=== PATIENT | male | born 1950 | race Caucasian/White ===

== ENCOUNTER 2019-04-15 23:23 | Inpatient (IN) | payer MEDICARE, MEDICAID ==
[~2019-04-15] VITALS: Ht 182.9 cm; Wt 71.0 kg
[2019-04-15] MEDS ORDERED: normal saline 1000ML IV soln IVB ONE (23:45)
[2019-04-15] MEDS ORDERED: ipratropium/albuterol 3ml nebule NEB ONE (23:45)
[2019-04-16] MEDS ORDERED: azithromycin/NS 500mg/250ml 250 ML IV ONE
[2019-04-16] MEDS ORDERED: CefTRIAXone 2gm/D5W 50ml 50 ML IV ONE
[2019-04-16] MEDS ORDERED: magnesium 2GM in 50ml NS 50 ML IV PRN (01:10)
[2019-04-16] MEDS ORDERED: potassium Cl 20 mEq SR tablet PO PRN (01:10)
[2019-04-16] MEDS ORDERED: magnesium 4gm in 100ml NS 100 ML IV PRN (01:10)
[2019-04-16] MEDS ORDERED: potassium CL 10mEq/100ml bag 100 ML IV PRN ×2 (01:10)
[2019-04-16] MEDS ORDERED: ondansetron/PF 4mg/2ml inj IV PRN (01:10)
[2019-04-16] MEDS ORDERED: magnesium Cl slow-release 64mg tablet PO PRN (01:10)
[2019-04-16] MEDS ORDERED: TRAZ-251 PO (01:15)
[2019-04-16] MEDS ORDERED: ESCI10TA54 PO (01:15)
[2019-04-16] MEDS ORDERED: ALBU8HFA PO (01:15)
[2019-04-16] MEDS ORDERED: DICL50TA14 PO (01:15)
[2019-04-16] MEDS: normal saline 1000ml 1,000 ML IV SCH (01:17)
--- NOTE | 2019-04-16 01:37 | NUR ---
Patient resting on gurney, pending admit. He is mildly confused, but follows commands.
--- NOTE | 2019-04-16 02:16 | NUR ---
pt belongings: boots, shorts, undies, wallet. No cell phone. medeiros: T=$300 (4x$50; 5x$20) & check for $100 verified and locked by Registration.
--- NOTE | 2019-04-16 03:36 | NUR ---
Patient in room ORTHO 4015. I have received report from Saloni SANFORD in the ER and had the opportunity to ask questions and assume patient care. Pt arrived on the unit at approx. 0316 on a gurney. He was able to slide himself from the gurney to his bad. Tele was placed, VS were taken, IV was connected and running at 20mls/hr, 2 RN skin check was performed and O@ was connected at 2L via NC. Pt is aware that he is in [place], [place]. Pt shows no signs of distress, will continue to monitor.
[2019-04-16 03:41] VITALS: BP 108/64
[2019-04-16 06:00] VITALS: BP 111/71
--- NOTE | 2019-04-16 06:20 | NUR ---
Problems reprioritized. Patient report given, questions answered & plan of care reviewed with Rea SANFORD.
[2019-04-16] MEDS: K and/or MAG REPLACEMENT MC SCH (08:00)
[2019-04-16] MEDS: levoFLOXACIN-Levaquin 500mg/D5 100 ML IV SCH (08:13)
[2019-04-16] MEDS: heparin, porcine 5000 units/ml vial SQ SCH ×2 (08:14→20:00)
--- NOTE | 2019-04-16 08:14 | NUR ---
Labs from [facility] platelet: [phone]; heparin administered
[2019-04-16 10:03] LABS: BASOPHILS % (AUTO) 0.1 % (0-1); EOSINOPHILS % (AUTO) 0 % (0-6); HEMATOCRIT 29.1 % (42.0-52.0); HEMOGLOBIN 9.4 g/dl (14.0-17.9); LYMPHOCYTES # (AUTO) 0.4 X10'3 (1.1-4.8); LYMPHOCYTES % (AUTO) 3.8 % (21-51); MEAN CORPUSCULAR HEMOGLOBIN 28.4 PG (27.0-31.0); MEAN CORPUSCULAR HGB CONC 32.2 g/dL (33.0-36.5); MEAN CORPUSCULAR VOLUME 88.2 FL (78-98); MEAN PLATELET VOLUME 6.8 FL (7.4-10.4); MONOCYTES # (AUTO) 0.3 X10'3 (0-0.9); MONOCYTES % (AUTO) 2.7 % (2-12); NEUTROPHILS # (AUTO) 10.9 X10'3 (1.8-7.7); NEUTROPHILS % (AUTO) 93.4 % (42-75); PLATELET COUNT 586 X10'3 (140-440); WHITE BLOOD COUNT 11.6 X10'3 (4.5-11.0)
[2019-04-16 10:13] LABS: ALANINE AMINOTRANSFERASE 52 U/L (12-78); ALBUMIN 1.8 G/DL (3.4-5.0); ALBUMIN/GLOBULIN RATIO 0.3 (1.1-1.5); ALKALINE PHOSPHATASE 162 IU/L (46-116); ANION GAP 9 (8-16); ASPARTATE AMINO TRANSFERASE 36 U/L (10-37); BILIRUBIN,TOTAL 0.2 MG/DL (0.1-1.0); BLOOD UREA NITROGEN 21 MG/DL (7-18); BUN/CREATININE RATIO 16.9 (5.4-32.0); CHLORIDE 101 MMOL/L (99-107); CREATININE 1.24 MG/DL (0.60-1.10); GLUCOSE 192 MG/DL (70-104); POTASSIUM 3.6 MMOL/L (3.5-5.1); SODIUM 138 MMOL/L (135-145); TOTAL CARBON DIOXIDE 28.2 MMOL/L (24-32); TOTAL PROTEIN 7.5 G/DL (6.4-8.2); eGFR 58 ML/MIN
[2019-04-16 10:19] LABS: CALCIUM 13.5 MG/DL (8.5-10.1)
[2019-04-16 10:28] LABS: TOTAL CELLS COUNTED 100
[2019-04-16 10:29] LABS: PLATELET ESTIMATE INCREASED; TOXIC GRANULATION 1+
[2019-04-16] MEDS ORDERED: HYDROcodone/acetaminophen 5mg/325mg tablet PO PRN (13:20)
[2019-04-16 14:00] VITALS: BP 109/58
[2019-04-16] MEDS: HYDROcodone/acetaminophen 10/325mg tab PO PRN ×2 (14:12→19:15)
--- NOTE | 2019-04-16 14:32 | NUR ---
Dr Krueger left VM for Dr Gutierres r/t confirmation pt has Bronchoscopy scheduled for Sunday04/18/2019 as per pt. Per [facility]/ [facility]ron/Angio/IR, pt will tentatively be scheduled for biopsy In-house 04/17/19 (if no call back/confirmation from Dr Gutierres) Hold all blood thinners heparin etc. No set time yet. Sputum sample ordered. Critical Calcium 13.5/Dr Krueger made aware of critical lab. Information has been given to family.
[2019-04-16] MEDS ORDERED: pamidronate disodium inj 60 MG in normal saline 500ml IV soln 500 ML IV ONE (16:15)
[2019-04-16 18:00] VITALS: BP 129/78
--- NOTE | 2019-04-16 18:00 | NUR ---
Received report from Rea SANFORD, assumed care of patient with Saloni SANFORD
[2019-04-16] MEDS: traZODone 50mg tablet PO SCH (20:48)
[2019-04-16] MEDS: lactobacillus rhamnosus 10,000 MMU CELLS/CAPSULE PO SCH (20:48)
[2019-04-16 22:00] VITALS: BP 101/61
[2019-04-17] MEDS: HYDROcodone/acetaminophen 10/325mg tab PO PRN ×2 (04:01→15:08)
--- NOTE | 2019-04-17 05:40 | NUR ---
In agreement with all charting and medication administration reviewed for this shift completed by Kristy SANFORD.
[2019-04-17 06:00] VITALS: BP 89/59
[2019-04-17 06:02] LABS: ALBUMIN 1.6 G/DL (3.4-5.0); ANION GAP 5 (8-16); BLOOD UREA NITROGEN 20 MG/DL (7-18); BUN/CREATININE RATIO 20.2 (5.4-32.0); CHLORIDE 106 MMOL/L (99-107); CREATININE 0.99 MG/DL (0.60-1.10); GLUCOSE 93 MG/DL (70-104); MAGNESIUM 1.9 MG/DL (1.5-2.4); POTASSIUM 3.6 MMOL/L (3.5-5.1); SODIUM 140 MMOL/L (135-145); TOTAL CARBON DIOXIDE 28.9 MMOL/L (24-32); eGFR 75 ML/MIN
--- NOTE | 2019-04-17 06:27 | NUR ---
Gave report to Hai SANFORD with Saloni SANFORD.
--- NOTE | 2019-04-17 06:35 | NUR ---
[facility] hospitalist [phone] [id number] Adriana Santos critical Calcium of 13.0, will continue to monitor
--- NOTE | 2019-04-17 06:41 | NUR ---
Patient in room ORTHO 4015. I have received report from Kristy SANFORD and had the opportunity to ask questions and assume patient care.
[2019-04-17] MEDS: K and/or MAG REPLACEMENT MC SCH (07:00)
[2019-04-17] MEDS: heparin, porcine 5000 units/ml vial SQ SCH ×2 (07:02→20:26)
[2019-04-17] MEDS: normal saline 1000ml 1,000 ML IV SCH ×3 (07:10→20:24)
[2019-04-17] MEDS: levoFLOXACIN-Levaquin 500mg/D5 100 ML IV SCH (07:11)
[2019-04-17] MEDS: lactobacillus rhamnosus 10,000 MMU CELLS/CAPSULE PO SCH ×2 (07:12→20:26)
[2019-04-17] MEDS: citalopram 20mg tablet PO SCH (07:12)
[2019-04-17 08:48] LABS: BASOPHILS % (AUTO) 0.2 % (0-1); EOSINOPHILS # (AUTO) 0.1 X10'3 (0-0.9); EOSINOPHILS % (AUTO) 0.5 % (0-6); HEMATOCRIT 24.7 % (42.0-52.0); LYMPHOCYTES % (AUTO) 8.1 % (21-51); MEAN CORPUSCULAR HEMOGLOBIN 28.6 PG (27.0-31.0); MEAN CORPUSCULAR HGB CONC 32.5 g/dL (33.0-36.5); MEAN PLATELET VOLUME 6.9 FL (7.4-10.4); MONOCYTES % (AUTO) 7.8 % (2-12); NEUTROPHILS # (AUTO) 10.2 X10'3 (1.8-7.7); NEUTROPHILS % (AUTO) 83.4 % (42-75); PLATELET COUNT 526 X10'3 (140-440); RED BLOOD COUNT 2.81 X10'6 (4.70-6.10); RED CELL DISTRIBUTION WIDTH 14.7 % (11.5-14.5); WHITE BLOOD COUNT 12.2 X10'3 (4.5-11.0)
[2019-04-17] MEDS ORDERED: pamidronate disodium inj 30 MG in normal saline 250ml IV soln 250 ML IV ONE (09:40)
[2019-04-17 10:00] VITALS: BP 137/84
[2019-04-17] MEDS ORDERED: fentaNYL/PF 50MCG/1 ML 2ML syringe IV PRN (12:05)
[2019-04-17] MEDS ORDERED: MIDAZolam 5mg/5ml vial IV PRN (12:05)
[2019-04-17] MEDS ORDERED: epiNEPHrine 1 mg/ml inj IR PRN (12:05)
[2019-04-17] MEDS ORDERED: LIDOcaine 4% (40 mg/ml) topical solution 50ml MM ONE (12:05)
[2019-04-17] MEDS ORDERED: LIDOcaine 4% (40 mg/ml) topical solution 50ml INH ONE (12:05)
[2019-04-17] MEDS ORDERED: phenylephrine 1% (X-tra strg) 15ml nasal spray NS ONE (12:05)
--- NOTE | 2019-04-17 14:07 | NUR ---
Malnutrition consult: Pt admit w/ post-obstructive PNA found to have large lung mass likely malignancy per MD note pending biopsy. Ca elevated likely from malignancy and pending transfer to [facility] for oncology per MD note. Pt seen by RD and reports 40 pound loss r/t decreased PO past 1.5 months but also didn't know actual current scaled wt. Pt likely has had significant wt loss though exact amount unknown in addition to low PO and is visibly cachectic. Pt qualifies for severe malnutrition at this time; MD notified. RD provided pt w/ written/verbal malnutrition ed and RD contact information. Pt agrees to ensure pudding TIDWM, milk TID, cottage cheese w/ fruit for breakfast; dietary notified. Pt reports hx hemochromatosis since and will not eat beef; dietary notified. [place] d/w who agrees to add MVI for pt needs. Pt PO 40-50% meals this admit. LBM 04/16. Will monitor for additional protein/kcal needs pending further PO hx w/ pt food preferences honored. Rec: 1. advance to regular diet per MD 2. ensure pudding, milk TID; cottage cheese and fruit w/ breakfasts 3. honor pt food preferences; see above note 4. MVI for additional needs w/ CA DX 5. weekly wts Addendum: 04/17/19 at [address] Amended: Links added.
[2019-04-17] MEDS: cefepime 1GM in D5W 50mL 50 ML IV SCH ×2 (15:08→23:59)
--- NOTE | 2019-04-17 17:02 | NUR ---
paged hospitalist [phone] bronchoscopy scheduled for 1000 tomorrow morning
[2019-04-17 18:00] VITALS: BP 111/68
--- NOTE | 2019-04-17 18:14 | NUR ---
Problems reprioritized. Patient report given, questions answered & plan of care reviewed with Teresa SANFORD.
--- NOTE | 2019-04-17 18:36 | NUR ---
Patient in room ORTHO 4015. I have received report from JUVENAL Valles and had the opportunity to ask questions and assume patient care.
[2019-04-17] MEDS: traZODone 50mg tablet PO SCH (20:25)
[2019-04-17 22:00] VITALS: BP 130/79
[2019-04-17 22:31] VITALS: BP 120/70
[2019-04-17] MEDS: ipratropium/albuterol 3ml nebule NEB PRN (22:34)
[2019-04-17 22:35] LABS: ABG BASE EXCESS 2.8 mmol/L (-2.0-3.0); ABG HCO3 25.9 mmol/L (22.0-26.0); ABG OXYGEN SATURATION 87.4 % (95-98); ABG PCO2 (T) 37.8 mmHg (35.0-45.0); ABG PH (T) 7.462 (7.350-7.450); ALLEN'S TEST Positive; FCOHb 0.2 % (0.5-1.5); FLOW 2 L/min; FMetHb 0.3 % (0.3-1.12); PATIENT TEMPERATURE 39.2; RESPIRATORY RATE (OBSERVED) 24 b/min
[2019-04-17] MEDS: acetaminophen 325mg tablet PO PRN (22:58)
--- NOTE | 2019-04-17 23:00 | NUR ---
Patient moved from 4015 to 4020 B to be closer to the nurses station due to confusion and repeated attempts to get out of bed.
[2019-04-18] VITALS (17 sets, daily range): BP systolic 75–97; BP diastolic 40–57
--- NOTE | 2019-04-18 06:19 | NUR ---
Problems reprioritized. Patient report given, questions answered & plan of care reviewed with JUVENAL Valles.
[2019-04-18 06:21] LABS: ALBUMIN 1.7 G/DL (3.4-5.0); ANION GAP 4 (8-16); BLOOD UREA NITROGEN 18 MG/DL (7-18); BUN/CREATININE RATIO 14.8 (5.4-32.0); CALCIUM 11.4 MG/DL (8.5-10.1); CHLORIDE 104 MMOL/L (99-107); CREATININE 1.22 MG/DL (0.60-1.10); GLUCOSE 82 MG/DL (70-104); MAGNESIUM 1.7 MG/DL (1.5-2.4); POTASSIUM 3.3 MMOL/L (3.5-5.1); SODIUM 138 MMOL/L (135-145); TOTAL CARBON DIOXIDE 29.9 MMOL/L (24-32); eGFR 59 ML/MIN
--- NOTE | 2019-04-18 06:29 | NUR ---
Patient in room ORTHO 4020. I have received report from Teresa SANFORD and had the opportunity to ask questions and assume patient care.
[2019-04-18 06:31] LABS: BASOPHILS # (AUTO) 0.1 X10'3 (0-0.2); BASOPHILS % (AUTO) 0.7 % (0-1); EOSINOPHILS % (AUTO) 0.3 % (0-6); HEMATOCRIT 25.1 % (42.0-52.0); HEMOGLOBIN 8.4 g/dl (14.0-17.9); LYMPHOCYTES # (AUTO) 0.7 X10'3 (1.1-4.8); LYMPHOCYTES % (AUTO) 6.8 % (21-51); MEAN CORPUSCULAR HEMOGLOBIN 29.3 PG (27.0-31.0); MEAN CORPUSCULAR HGB CONC 33.5 g/dL (33.0-36.5); MEAN CORPUSCULAR VOLUME 87.4 FL (78-98); MEAN PLATELET VOLUME 7.1 FL (7.4-10.4); MONOCYTES # (AUTO) 0.8 X10'3 (0-0.9); NEUTROPHILS # (AUTO) 8.6 X10'3 (1.8-7.7); NEUTROPHILS % (AUTO) 84.2 % (42-75); PLATELET COUNT 488 X10'3 (140-440); RED BLOOD COUNT 2.87 X10'6 (4.70-6.10); RED CELL DISTRIBUTION WIDTH 15.1 % (11.5-14.5); WHITE BLOOD COUNT 10.2 X10'3 (4.5-11.0)
[2019-04-18] MEDS: heparin, porcine 5000 units/ml vial SQ SCH ×2 (07:01→20:32)
[2019-04-18] MEDS: K and/or MAG REPLACEMENT MC SCH (07:05)
[2019-04-18] MEDS: citalopram 20mg tablet PO SCH (07:34)
[2019-04-18] MEDS: levoFLOXACIN-Levaquin 500mg/D5 100 ML IV SCH (07:34)
[2019-04-18] MEDS: HYDROcodone/acetaminophen 10/325mg tab PO PRN ×3 (07:46→20:31)
[2019-04-18] MEDS: multivitamins, therapeutics tablet PO SCH (08:00)
[2019-04-18] MEDS: lactobacillus rhamnosus 10,000 MMU CELLS/CAPSULE PO SCH ×2 (08:00→20:30)
[2019-04-18] MEDS: cefepime 1GM in D5W 50mL 50 ML IV SCH ×2 (08:45→16:21)
[2019-04-18] MEDS ORDERED: epiNEPHrine 1 MG/ML 1 ml ampule **BRONCH ONLY ONE (08:55)
[2019-04-18] MEDS ORDERED: lidocaine 2% viscous 15 ML cup ***bronch room only MM ONE (08:55)
[2019-04-18] MEDS ORDERED: phenylephrine 1% Nasal spray (extra-strength) 15 ML bottle **bronch room NS ONE (08:55)
[2019-04-18] MEDS ORDERED: LIDOCAINE 4% (40MG/ML) topical solution 50ml **BRONCH ONLY ONE (08:55)
[2019-04-18] MEDS: ipratropium/albuterol 3ml nebule NEB PRN (09:12)
[2019-04-18] MEDS ORDERED: fentaNYL/PF 50MCG/1 ML 2ML syringe ONE (09:51)
[2019-04-18] MEDS ORDERED: MIDAZolam 5mg/5ml vial ONE (09:51)
[2019-04-18] MEDS: normal saline 1000ml 1,000 ML IV SCH ×2 (12:16→20:54)
[2019-04-18] MEDS: potassium Cl 20 mEq SR tablet PO PRN ×2 (14:28→20:54)
--- NOTE | 2019-04-18 18:20 | NUR ---
Problems reprioritized. Patient report given, questions answered & plan of care reviewed with Chuyita SANFORD.
--- NOTE | 2019-04-18 18:30 | NUR ---
Patient in room ORTHO 4020. I have received report from Hai SANFORD and had the opportunity to ask questions and assume patient care.
[2019-04-18] MEDS: traZODone 50mg tablet PO SCH (20:30)
[2019-04-19] MEDS: cefepime 1GM in D5W 50mL 50 ML IV SCH ×4 (00:06→23:15)
[2019-04-19] MEDS: HYDROcodone/acetaminophen 10/325mg tab PO PRN ×4 (02:10→17:39)
[2019-04-19] MEDS: normal saline 1000ml 1,000 ML IV SCH ×3 (05:07→23:11)
[2019-04-19 06:00] VITALS: BP 79/51
[2019-04-19 06:15] LABS: BASOPHILS % (AUTO) 0.4 % (0-1); EOSINOPHILS # (AUTO) 0.4 X10'3 (0-0.9); EOSINOPHILS % (AUTO) 3.4 % (0-6); HEMATOCRIT 23.6 % (42.0-52.0); HEMOGLOBIN 7.8 g/dl (14.0-17.9); LYMPHOCYTES # (AUTO) 0.9 X10'3 (1.1-4.8); LYMPHOCYTES % (AUTO) 7.4 % (21-51); MEAN CORPUSCULAR HEMOGLOBIN 28.9 PG (27.0-31.0); MEAN CORPUSCULAR HGB CONC 33.2 g/dL (33.0-36.5); MEAN PLATELET VOLUME 6.6 FL (7.4-10.4); MONOCYTES # (AUTO) 0.9 X10'3 (0-0.9); MONOCYTES % (AUTO) 6.6 % (2-12); NEUTROPHILS # (AUTO) 10.6 X10'3 (1.8-7.7); NEUTROPHILS % (AUTO) 82.2 % (42-75); PLATELET COUNT 423 X10'3 (140-440); RED BLOOD COUNT 2.71 X10'6 (4.70-6.10); RED CELL DISTRIBUTION WIDTH 14.9 % (11.5-14.5); WHITE BLOOD COUNT 12.9 X10'3 (4.5-11.0)
--- NOTE | 2019-04-19 06:23 | NUR ---
Problems reprioritized. Patient report given, questions answered & plan of care reviewed with Hai SANFORD.
[2019-04-19 06:26] LABS: ALBUMIN 1.5 G/DL (3.4-5.0); ANION GAP 8 (8-16); BLOOD UREA NITROGEN 13 MG/DL (7-18); BUN/CREATININE RATIO 15.1 (5.4-32.0); CALCIUM 10.2 MG/DL (8.5-10.1); CHLORIDE 105 MMOL/L (99-107); CREATININE 0.86 MG/DL (0.60-1.10); GLUCOSE 80 MG/DL (70-104); MAGNESIUM 1.5 MG/DL (1.5-2.4); POTASSIUM 3.2 MMOL/L (3.5-5.1); SODIUM 138 MMOL/L (135-145); eGFR 88 ML/MIN
--- NOTE | 2019-04-19 06:36 | NUR ---
Patient in room ORTHO 4020. I have received report from Chuyita SANFORD and had the opportunity to ask questions and assume patient care.
[2019-04-19] MEDS: K and/or MAG REPLACEMENT MC SCH (07:42)
[2019-04-19] MEDS: lactobacillus rhamnosus 10,000 MMU CELLS/CAPSULE PO SCH ×2 (07:44→20:43)
[2019-04-19] MEDS: multivitamins, therapeutics tablet PO SCH (07:44)
[2019-04-19] MEDS: citalopram 20mg tablet PO SCH (07:44)
[2019-04-19] MEDS: heparin, porcine 5000 units/ml vial SQ SCH ×2 (07:45→20:44)
[2019-04-19] MEDS: levoFLOXACIN-Levaquin 500mg/D5 100 ML IV SCH (08:44)
[2019-04-19] MEDS ORDERED: potassium Cl 20 mEq SR tablet PO PRN (09:00)
[2019-04-19] MEDS: potassium Cl 20 mEq SR tablet PO PRN ×3 (09:22→17:39)
[2019-04-19 09:51] VITALS: BP 81/47
[2019-04-19 09:55] VITALS: BP 71/42
[2019-04-19 10:00] VITALS: BP 92/59
[2019-04-19] MEDS: midodrine tablet 2.5 MG TABLET PO SCH ×2 (16:26→23:15)
--- NOTE | 2019-04-19 18:21 | NUR ---
Problems reprioritized. Patient report given, questions answered & plan of care reviewed with Jason SANFORD.
[2019-04-19 19:00] VITALS: BP 114/68
[2019-04-19] MEDS: traZODone 50mg tablet PO SCH (20:43)
[2019-04-19 23:00] VITALS: BP 120/72
[2019-04-20] MEDS: normal saline 1000ml 1,000 ML IV SCH ×3 (05:48→22:28)
[2019-04-20 05:56] LABS: BASOPHILS # (AUTO) 0.1 X10'3 (0-0.2); BASOPHILS % (AUTO) 0.3 % (0-1); EOSINOPHILS # (AUTO) 0.4 X10'3 (0-0.9); HEMATOCRIT 25.8 % (42.0-52.0); HEMOGLOBIN 8.6 g/dl (14.0-17.9); LYMPHOCYTES % (AUTO) 5.4 % (21-51); MEAN CORPUSCULAR HGB CONC 33.2 g/dL (33.0-36.5); MEAN CORPUSCULAR VOLUME 87.4 FL (78-98); MEAN PLATELET VOLUME 6.5 FL (7.4-10.4); MONOCYTES # (AUTO) 1.2 X10'3 (0-0.9); MONOCYTES % (AUTO) 6.5 % (2-12); NEUTROPHILS # (AUTO) 16.2 X10'3 (1.8-7.7); NEUTROPHILS % (AUTO) 85.8 % (42-75); PLATELET COUNT 483 X10'3 (140-440); RED BLOOD COUNT 2.95 X10'6 (4.70-6.10); WHITE BLOOD COUNT 18.9 X10'3 (4.5-11.0)
[2019-04-20 06:00] VITALS: BP 93/66
[2019-04-20 06:10] LABS: ALBUMIN 1.7 G/DL (3.4-5.0); ANION GAP 9 (8-16); BLOOD UREA NITROGEN 8 MG/DL (7-18); BUN/CREATININE RATIO 9.5 (5.4-32.0); CALCIUM 9.3 MG/DL (8.5-10.1); CHLORIDE 104 MMOL/L (99-107); CREATININE 0.84 MG/DL (0.60-1.10); GLUCOSE 99 MG/DL (70-104); MAGNESIUM 1.5 MG/DL (1.5-2.4); POTASSIUM 3.1 MMOL/L (3.5-5.1); SODIUM 137 MMOL/L (135-145); eGFR 90 ML/MIN
[2019-04-20] MEDS: K and/or MAG REPLACEMENT MC SCH (08:00)
[2019-04-20] MEDS: cefepime 1GM in D5W 50mL 50 ML IV SCH ×2 (08:00→17:05)
[2019-04-20 10:00] VITALS: BP 102/53
--- NOTE | 2019-04-20 10:45 | NUR ---
Patient in room ORTHO 4020. I have received report from Batsheva SANFORD and had the opportunity to ask questions and assume patient care.
[2019-04-20] MEDS: lactobacillus rhamnosus 10,000 MMU CELLS/CAPSULE PO SCH ×2 (11:53→20:56)
[2019-04-20] MEDS: midodrine tablet 2.5 MG TABLET PO SCH ×2 (11:54→17:05)
[2019-04-20] MEDS: multivitamins, therapeutics tablet PO SCH (11:54)
[2019-04-20] MEDS: levoFLOXACIN 500mg tablet PO SCH (11:54)
[2019-04-20] MEDS: potassium Cl 20 mEq SR tablet PO PRN ×3 (11:54→22:48)
[2019-04-20] MEDS: citalopram 20mg tablet PO SCH (11:54)
[2019-04-20] MEDS: heparin, porcine 5000 units/ml vial SQ SCH ×2 (11:55→20:58)
[2019-04-20] MEDS: HYDROcodone/acetaminophen 10/325mg tab PO PRN (11:58)
--- NOTE | 2019-04-20 13:33 | NUR ---
reassessment: Pt PO 0-25% meals past 4 days decreased from prior. LBM 04/17. RD d/w RN regarding routine bowel care this admit per MD approval. Pt AOx3 per EMR. No edema/wounds. Will continue to monitor; pt food preferences met see prior note. Rec: 1. advance to regular diet per MD 2. ensure pudding, milk TID; cottage cheese and fruit w/ breakfasts 3. routine bowel care 4. MVI for additional needs w/ CA DX 5. weekly wts Addendum: 04/20/19 at [address] Amended: Links added.
[2019-04-20] MEDS ORDERED: LIDOcaine/PRILOcaine 5gm cream TP PRN (16:15)
[2019-04-20] MEDS ORDERED: LIDOCAINE 5% OINTMENT 35GM TP PRN (16:33)
[2019-04-20] MEDS: LIDOcaine 5% patch TP SCH (17:05)
[2019-04-20 18:00] VITALS: BP 122/66
--- NOTE | 2019-04-20 18:37 | NUR ---
Problems reprioritized. Patient report given, questions answered & plan of care reviewed with Ramirez SANFORD.
--- NOTE | 2019-04-20 19:06 | NUR ---
Patient in room ORTHO 4020B. I have received report from JUVENAL Raygoza and had the opportunity to ask questions and assume patient care. Patient awake for bedside report. Will continue to monitor closely.
[2019-04-20] MEDS: traZODone 50mg tablet PO SCH (20:55)
[2019-04-20] MEDS: oxyCODONE/APAP 10/325mg tablet PO PRN (20:56)
--- NOTE | 2019-04-20 22:34 | NUR ---
PAGER ID: [phone] MESSAGE: Ext. [phone], JUVENAL Guzmán. Patient in 4020B has IV cefepime and NS due at midnight but no IV access. US tried to insert IV but unsuccessful. Going to tomorrow. Do you want PO ABx coverage in the mean time? Thank you! Addendum: 04/20/19 at 2238 by Brianda Pat RN Notified provider regarding IV cefepime. Unable to infuse cefepime as ordered. No additional orders at this time.
[2019-04-20 23:00] VITALS: BP 109/61
[2019-04-21] MEDS: midodrine tablet 2.5 MG TABLET PO SCH ×3 (00:44→17:54)
[2019-04-21 05:00] VITALS: BP 92/50
[2019-04-21 05:18] LABS: BASOPHILS # (AUTO) 0.1 X10'3 (0-0.2); BASOPHILS % (AUTO) 0.5 % (0-1); EOSINOPHILS # (AUTO) 0.5 X10'3 (0-0.9); EOSINOPHILS % (AUTO) 3.9 % (0-6); HEMATOCRIT 27.4 % (42.0-52.0); HEMOGLOBIN 8.9 g/dl (14.0-17.9); LYMPHOCYTES # (AUTO) 1.1 X10'3 (1.1-4.8); LYMPHOCYTES % (AUTO) 8.1 % (21-51); MEAN CORPUSCULAR HEMOGLOBIN 28.6 PG (27.0-31.0); MEAN CORPUSCULAR HGB CONC 32.6 g/dL (33.0-36.5); MEAN CORPUSCULAR VOLUME 87.5 FL (78-98); MEAN PLATELET VOLUME 6.6 FL (7.4-10.4); MONOCYTES # (AUTO) 0.9 X10'3 (0-0.9); MONOCYTES % (AUTO) 6.6 % (2-12); NEUTROPHILS # (AUTO) 10.8 X10'3 (1.8-7.7); NEUTROPHILS % (AUTO) 80.9 % (42-75); PLATELET COUNT 495 X10'3 (140-440); RED BLOOD COUNT 3.13 X10'6 (4.70-6.10); RED CELL DISTRIBUTION WIDTH 15.1 % (11.5-14.5); WHITE BLOOD COUNT 13.3 X10'3 (4.5-11.0)
[2019-04-21 05:21] LABS: ALBUMIN 1.9 G/DL (3.4-5.0); ANION GAP 5 (8-16); BLOOD UREA NITROGEN 8 MG/DL (7-18); BUN/CREATININE RATIO 9.3 (5.4-32.0); CALCIUM 9.6 MG/DL (8.5-10.1); CHLORIDE 105 MMOL/L (99-107); CREATININE 0.86 MG/DL (0.60-1.10); GLUCOSE 86 MG/DL (70-104); MAGNESIUM 1.6 MG/DL (1.5-2.4); POTASSIUM 3.7 MMOL/L (3.5-5.1); SODIUM 138 MMOL/L (135-145); TOTAL CARBON DIOXIDE 27.7 MMOL/L (24-32); eGFR 88 ML/MIN
--- NOTE | 2019-04-21 06:26 | NUR ---
Problems reprioritized. Patient report given, questions answered & plan of care reviewed with JUVENAL Nieto.
[2019-04-21] MEDS: normal saline 1000ml 1,000 ML IV SCH ×3 (06:48→20:44)
[2019-04-21] MEDS: K and/or MAG REPLACEMENT MC SCH (08:00)
[2019-04-21] MEDS: ipratropium/albuterol 3ml nebule NEB PRN (08:01)
[2019-04-21] MEDS: citalopram 20mg tablet PO SCH (08:09)
[2019-04-21] MEDS: multivitamins, therapeutics tablet PO SCH (08:09)
[2019-04-21] MEDS: lactobacillus rhamnosus 10,000 MMU CELLS/CAPSULE PO SCH ×2 (08:09→20:42)
[2019-04-21] MEDS: cefepime 1GM in D5W 50mL 50 ML IV SCH ×3 (08:10→17:54)
[2019-04-21] MEDS: heparin, porcine 5000 units/ml vial SQ SCH ×2 (08:11→20:43)
[2019-04-21] MEDS: oxyCODONE/APAP 10/325mg tablet PO PRN ×2 (08:20→17:58)
[2019-04-21] MEDS: LIDOcaine 5% patch TP SCH (08:24)
[2019-04-21] MEDS: levoFLOXACIN 500mg tablet PO SCH (11:00)
[2019-04-21 18:00] VITALS: BP 127/83
[2019-04-21] MEDS: traZODone 50mg tablet PO SCH (20:42)
[2019-04-21 22:00] VITALS: BP 102/56
[2019-04-22] MEDS: cefepime 1GM in D5W 50mL 50 ML IV SCH ×4 (00:04→23:33)
[2019-04-22] MEDS: midodrine tablet 2.5 MG TABLET PO SCH ×4 (00:04→23:52)
[2019-04-22] MEDS: oxyCODONE/APAP 10/325mg tablet PO PRN ×3 (00:07→20:19)
[2019-04-22 06:00] VITALS: BP 87/45
--- NOTE | 2019-04-22 06:03 | NUR ---
report given to ondina Wood.
[2019-04-22 06:07] LABS: BASOPHILS # (AUTO) 0.1 X10'3 (0-0.2); BASOPHILS % (AUTO) 0.5 % (0-1); EOSINOPHILS # (AUTO) 0.6 X10'3 (0-0.9); EOSINOPHILS % (AUTO) 3.9 % (0-6); HEMATOCRIT 27.4 % (42.0-52.0); LYMPHOCYTES # (AUTO) 1.3 X10'3 (1.1-4.8); LYMPHOCYTES % (AUTO) 8.6 % (21-51); MEAN CORPUSCULAR VOLUME 87.7 FL (78-98); MEAN PLATELET VOLUME 6.3 FL (7.4-10.4); MONOCYTES % (AUTO) 6.8 % (2-12); NEUTROPHILS # (AUTO) 12.4 X10'3 (1.8-7.7); NEUTROPHILS % (AUTO) 80.2 % (42-75); PLATELET COUNT 476 X10'3 (140-440); RED BLOOD COUNT 3.12 X10'6 (4.70-6.10); RED CELL DISTRIBUTION WIDTH 15.6 % (11.5-14.5); WHITE BLOOD COUNT 15.4 X10'3 (4.5-11.0)
[2019-04-22 06:12] LABS: ALANINE AMINOTRANSFERASE 22 U/L (12-78); ALBUMIN 1.8 G/DL (3.4-5.0); ALBUMIN/GLOBULIN RATIO 0.3 (1.1-1.5); ALKALINE PHOSPHATASE 122 IU/L (46-116); ANION GAP 8 (8-16); ASPARTATE AMINO TRANSFERASE 13 U/L (10-37); BILIRUBIN,TOTAL 0.1 MG/DL (0.1-1.0); BLOOD UREA NITROGEN 8 MG/DL (7-18); BUN/CREATININE RATIO 9.2 (5.4-32.0); CALCIUM 8.9 MG/DL (8.5-10.1); CHLORIDE 104 MMOL/L (99-107); CREATININE 0.87 MG/DL (0.60-1.10); GLUCOSE 98 MG/DL (70-104); MAGNESIUM 1.6 MG/DL (1.5-2.4); POTASSIUM 3.3 MMOL/L (3.5-5.1); SODIUM 137 MMOL/L (135-145); TOTAL CARBON DIOXIDE 25.3 MMOL/L (24-32); eGFR 87 ML/MIN
--- NOTE | 2019-04-22 06:30 | NUR ---
Patient in room ORTHO 4020. I have received report from JUVENAL Yancey and had the opportunity to ask questions and assume patient care.
[2019-04-22] MEDS: normal saline 1000ml 1,000 ML IV SCH ×3 (07:49→22:05)
[2019-04-22] MEDS: multivitamins, therapeutics tablet PO SCH (07:50)
[2019-04-22] MEDS: citalopram 20mg tablet PO SCH (07:50)
[2019-04-22] MEDS: lactobacillus rhamnosus 10,000 MMU CELLS/CAPSULE PO SCH ×2 (07:50→20:18)
[2019-04-22] MEDS: heparin, porcine 5000 units/ml vial SQ SCH ×2 (07:51→20:19)
[2019-04-22] MEDS: LIDOcaine 5% patch TP SCH (07:54)
[2019-04-22] MEDS: potassium Cl 20 mEq SR tablet PO PRN ×3 (07:58→17:49)
[2019-04-22] MEDS: K and/or MAG REPLACEMENT MC SCH (07:58)
[2019-04-22 10:00] VITALS: BP 117/81
[2019-04-22] MEDS: levoFLOXACIN 500mg tablet PO SCH (10:47)
[2019-04-22] MEDS: ipratropium/albuterol 3ml nebule NEB PRN (10:53)
[2019-04-22] MEDS ORDERED: potassium Cl 20 mEq SR tablet PO PRN (14:30)
[2019-04-22 18:00] VITALS: BP 118/62
--- NOTE | 2019-04-22 18:54 | NUR ---
Problems reprioritized. Patient report given, questions answered & plan of care reviewed with JUVENAL Ha.
--- NOTE | 2019-04-22 19:08 | NUR ---
Patient in room ORTHO 4020. I have received report from JUVENAL Wood and had the opportunity to ask questions and assume patient care. Addendum: 04/22/19 at 1909 by Dilcia Rodgers RN Amended: Links added.
[2019-04-22] MEDS: traZODone 50mg tablet PO SCH (20:18)
[2019-04-22 22:00] VITALS: BP 114/64
[2019-04-23 06:00] VITALS: BP 103/57
[2019-04-23 06:10] LABS: BASOPHILS # (AUTO) 0.1 X10'3 (0-0.2); BASOPHILS % (AUTO) 0.5 % (0-1); EOSINOPHILS # (AUTO) 0.6 X10'3 (0-0.9); EOSINOPHILS % (AUTO) 3.3 % (0-6); HEMATOCRIT 25.2 % (42.0-52.0); HEMOGLOBIN 8.4 g/dl (14.0-17.9); LYMPHOCYTES # (AUTO) 0.9 X10'3 (1.1-4.8); LYMPHOCYTES % (AUTO) 5.2 % (21-51); MEAN CORPUSCULAR HEMOGLOBIN 28.9 PG (27.0-31.0); MEAN CORPUSCULAR HGB CONC 33.3 g/dL (33.0-36.5); MEAN CORPUSCULAR VOLUME 86.7 FL (78-98); MEAN PLATELET VOLUME 6.4 FL (7.4-10.4); MONOCYTES # (AUTO) 1.3 X10'3 (0-0.9); MONOCYTES % (AUTO) 7.7 % (2-12); NEUTROPHILS % (AUTO) 83.3 % (42-75); PLATELET COUNT 440 X10'3 (140-440); RED CELL DISTRIBUTION WIDTH 15.5 % (11.5-14.5); WHITE BLOOD COUNT 16.8 X10'3 (4.5-11.0)
[2019-04-23 06:14] LABS: ALANINE AMINOTRANSFERASE 17 U/L (12-78); ALBUMIN 1.6 G/DL (3.4-5.0); ALBUMIN/GLOBULIN RATIO 0.3 (1.1-1.5); ALKALINE PHOSPHATASE 113 IU/L (46-116); ANION GAP 7 (8-16); ASPARTATE AMINO TRANSFERASE 19 U/L (10-37); BILIRUBIN,TOTAL 0.2 MG/DL (0.1-1.0); BLOOD UREA NITROGEN 5 MG/DL (7-18); BUN/CREATININE RATIO 6.8 (5.4-32.0); CALCIUM 8.3 MG/DL (8.5-10.1); CHLORIDE 105 MMOL/L (99-107); CREATININE 0.74 MG/DL (0.60-1.10); GLUCOSE 87 MG/DL (70-104); MAGNESIUM 1.4 MG/DL (1.5-2.4); POTASSIUM 3.7 MMOL/L (3.5-5.1); SODIUM 137 MMOL/L (135-145); TOTAL CARBON DIOXIDE 25.1 MMOL/L (24-32); TOTAL PROTEIN 6.4 G/DL (6.4-8.2); eGFR > 90 ML/MIN
--- NOTE | 2019-04-23 06:18 | NUR ---
Problems reprioritized. Patient report given, questions answered & plan of care reviewed with JUVENAL Gasca. Addendum: 04/23/19 at 0619 by Dilcia Rodgers RN Amended: Links added.
[2019-04-23] MEDS: K and/or MAG REPLACEMENT MC SCH (07:04)
[2019-04-23] MEDS: cefepime 1GM in D5W 50mL 50 ML IV SCH ×2 (07:35→17:02)
[2019-04-23] MEDS: normal saline 1000ml 1,000 ML IV SCH ×3 (07:35→22:00)
[2019-04-23] MEDS: LIDOcaine 5% patch TP SCH (07:35)
[2019-04-23] MEDS: citalopram 20mg tablet PO SCH (07:36)
[2019-04-23] MEDS: midodrine tablet 2.5 MG TABLET PO SCH ×2 (07:36→17:02)
[2019-04-23] MEDS: multivitamins, therapeutics tablet PO SCH (07:36)
[2019-04-23] MEDS: heparin, porcine 5000 units/ml vial SQ SCH ×2 (07:36→20:11)
[2019-04-23] MEDS: lactobacillus rhamnosus 10,000 MMU CELLS/CAPSULE PO SCH ×2 (07:36→20:09)
[2019-04-23] MEDS ORDERED: oxyCODONE IR 5mg (immed. release) tablet PO ONE (07:50)
[2019-04-23] MEDS: LORazepam 1 MG tablet PO PRN ×2 (09:03→09:47)
[2019-04-23] MEDS: levoFLOXACIN 500mg tablet PO SCH (17:02)
[2019-04-23 18:00] VITALS: BP 107/69
--- NOTE | 2019-04-23 18:23 | NUR ---
Problems reprioritized. Patient report given, questions answered & plan of care reviewed with Tere SANFORD.
[2019-04-23] MEDS: traZODone 50mg tablet PO SCH (20:09)
[2019-04-23] MEDS: diatr meglu/diatrizoate 30ml oral sol.-(3 dose) bottle PO SCH (21:51)
[2019-04-23 22:00] VITALS: BP 116/77
[2019-04-24] MEDS: cefepime 1GM in D5W 50mL 50 ML IV SCH ×4 (00:16→23:47)
[2019-04-24] MEDS: midodrine tablet 2.5 MG TABLET PO SCH ×4 (00:19→23:47)
[2019-04-24] MEDS: oxyCODONE/APAP 10/325mg tablet PO PRN ×2 (02:12→18:46)
[2019-04-24 05:23] LABS: BASOPHILS # (AUTO) 0.1 X10'3 (0-0.2); BASOPHILS % (AUTO) 0.4 % (0-1); EOSINOPHILS # (AUTO) 0.4 X10'3 (0-0.9); EOSINOPHILS % (AUTO) 2.3 % (0-6); HEMATOCRIT 23.6 % (42.0-52.0); HEMOGLOBIN 7.7 g/dl (14.0-17.9); LYMPHOCYTES # (AUTO) 1.2 X10'3 (1.1-4.8); LYMPHOCYTES % (AUTO) 6.5 % (21-51); MEAN CORPUSCULAR HEMOGLOBIN 28.3 PG (27.0-31.0); MEAN CORPUSCULAR HGB CONC 32.7 g/dL (33.0-36.5); MEAN CORPUSCULAR VOLUME 86.8 FL (78-98); MEAN PLATELET VOLUME 6.4 FL (7.4-10.4); MONOCYTES # (AUTO) 1.4 X10'3 (0-0.9); MONOCYTES % (AUTO) 7.8 % (2-12); NEUTROPHILS # (AUTO) 15.3 X10'3 (1.8-7.7); PLATELET COUNT 381 X10'3 (140-440); RED BLOOD COUNT 2.71 X10'6 (4.70-6.10); RED CELL DISTRIBUTION WIDTH 15.3 % (11.5-14.5); WHITE BLOOD COUNT 18.4 X10'3 (4.5-11.0)
[2019-04-24 06:40] LABS: ALANINE AMINOTRANSFERASE 17 U/L (12-78); ALBUMIN 1.6 G/DL (3.4-5.0); ALBUMIN/GLOBULIN RATIO 0.3 (1.1-1.5); ALKALINE PHOSPHATASE 110 IU/L (46-116); ANION GAP 7 (8-16); ASPARTATE AMINO TRANSFERASE 20 U/L (10-37); BILIRUBIN,TOTAL 0.2 MG/DL (0.1-1.0); BLOOD UREA NITROGEN 5 MG/DL (7-18); BUN/CREATININE RATIO 6.6 (5.4-32.0); CALCIUM 8.4 MG/DL (8.5-10.1); CHLORIDE 104 MMOL/L (99-107); CREATININE 0.76 MG/DL (0.60-1.10); GLUCOSE 100 MG/DL (70-104); POTASSIUM 3.5 MMOL/L (3.5-5.1); SODIUM 137 MMOL/L (135-145); TOTAL CARBON DIOXIDE 25.6 MMOL/L (24-32); TOTAL PROTEIN 6.3 G/DL (6.4-8.2); eGFR > 90 ML/MIN
--- NOTE | 2019-04-24 06:43 | NUR ---
Patient in room ORTHO 4020. I have received report from JUVENAL Cararnza and had the opportunity to ask questions and assume patient care. Patient is currently resting in bed, nasal cannula in place, bed locked and low, call light in reach. No acute distress, will continue to monitor.
[2019-04-24] MEDS: diatr meglu/diatrizoate 30ml oral sol.-(3 dose) bottle PO SCH ×2 (07:11→11:00)
[2019-04-24] MEDS: K and/or MAG REPLACEMENT MC SCH (08:00)
[2019-04-24] MEDS ORDERED: iohexol 300mg/ml 100ml inj. ONE (08:17)
[2019-04-24] MEDS: LIDOcaine 5% patch TP SCH (08:23)
[2019-04-24] MEDS: citalopram 20mg tablet PO SCH (08:24)
[2019-04-24] MEDS: lactobacillus rhamnosus 10,000 MMU CELLS/CAPSULE PO SCH ×2 (08:24→19:55)
[2019-04-24] MEDS: multivitamins, therapeutics tablet PO SCH (08:24)
[2019-04-24] MEDS: heparin, porcine 5000 units/ml vial SQ SCH ×2 (08:26→19:55)
[2019-04-24 08:36] VITALS: BP 98/62
--- NOTE | 2019-04-24 09:33 | NUR ---
patient complaining of SOB, requesting inhaler. Page sent to RT: [id number], Santos, Patient is complaining of SOB and requesting his inhaler/breathing treatment ELENI. Thank you
[2019-04-24] MEDS: ipratropium/albuterol 3ml nebule NEB PRN (09:39)
[2019-04-24] MEDS: normal saline 1000ml 1,000 ML IV SCH ×2 (09:48→20:31)
[2019-04-24 10:13] VITALS: BP 84/40
[2019-04-24] MEDS: levoFLOXACIN 500mg tablet PO SCH (12:16)
--- NOTE | 2019-04-24 12:34 | NUR ---
PAGER ID: [phone] MESSAGE: JUVENAL Bull, ext [phone], [phone], Santos, patient requesting throat lozenge for sore throat, thank you.
[2019-04-24] MEDS: benzocaine/menthol oral lozeng 1 EACH BOX MM PRN (13:56)
--- NOTE | 2019-04-24 16:11 | NUR ---
promotional table spacer PAGER ID: [phone] MESSAGE: JUVENAL Bull, ext [phone], [id number], Santos, patient has no BM for 4 days, dieticians requesting bowel care orders. Thank you
--- NOTE | 2019-04-24 16:11 | NUR ---
reassessment: Pt PO 25% avg meals. Pt seen by RD and reports all food tastes the same w/ decreased appetite. Pt requests vanilla ensure pudding BIDLD, egg salad at dinner, caffeine free pepsi BIDLD, tapioca pudding BIDLD. Pt also requests Vanilla ensure enlive TIDWM since drinks at home; MD notified and pending MD verification prior to sending on trays. Pt is aware of this. LBM 04/20; [place] d/w RN regarding routine bowel care per MD approval. Receiving MVI. Will continue to monitor. Rec: 1. advance to regular diet per MD 2. vanilla ensure pudding,milk TID; cottage cheese and fruit w/ breakfasts 3. routine bowel care 4. MVI for additional needs w/ CA DX 5. vanilla ensure enlive TIDWM; pend MD verification prior to sending 6. weekly wts Addendum: 04/24/19 at [address] Amended: Links added.
[2019-04-24] MEDS: lactose-reduced food (Ensure Enlive) - 237ml bottle PO SCH (18:00)
[2019-04-24 18:24] VITALS: BP 123/67
--- NOTE | 2019-04-24 18:25 | NUR ---
Problems reprioritized. Patient report given, questions answered & plan of care reviewed with JUVENAL Randhawa. Patient is currently resting in bed, bed locked and low, call light in reach. Stable at shift change.
--- NOTE | 2019-04-24 18:28 | NUR ---
Received report from Ml SANFORD pt states he is having a pain behind his head, call light and items of freq use within reach.
[2019-04-24] MEDS: traZODone 50mg tablet PO SCH (20:31)
[2019-04-24 22:02] VITALS: BP 103/50
[2019-04-25] MEDS: normal saline 1000ml 1,000 ML IV SCH ×4 (02:28→22:31)
[2019-04-25 06:10] VITALS: BP 101/63
--- NOTE | 2019-04-25 06:16 | NUR ---
Problems reprioritized. Patient report given, questions answered & plan of care reviewed with Shirlene SANFORD.
--- NOTE | 2019-04-25 06:30 | NUR ---
Patient in room ORTHO 4020. I have received report from Sydnee SANFORD and had the opportunity to ask questions and assume patient care.
[2019-04-25] MEDS: oxyCODONE/APAP 10/325mg tablet PO PRN ×3 (07:36→20:26)
[2019-04-25] MEDS: multivitamins, therapeutics tablet PO SCH (07:43)
[2019-04-25] MEDS: lactobacillus rhamnosus 10,000 MMU CELLS/CAPSULE PO SCH ×2 (07:43→20:25)
[2019-04-25] MEDS: citalopram 20mg tablet PO SCH (07:43)
[2019-04-25] MEDS: midodrine tablet 2.5 MG TABLET PO SCH ×2 (07:43→16:05)
[2019-04-25] MEDS: heparin, porcine 5000 units/ml vial SQ SCH ×2 (07:44→20:22)
[2019-04-25] MEDS: cefepime 1GM in D5W 50mL 50 ML IV SCH ×2 (07:44→16:05)
[2019-04-25] MEDS: LIDOcaine 5% patch TP SCH (07:45)
[2019-04-25] MEDS: K and/or MAG REPLACEMENT MC SCH (08:00)
[2019-04-25] MEDS: lactose-reduced food (Ensure Enlive) - 237ml bottle PO SCH ×3 (08:00→18:00)
[2019-04-25 09:33] LABS: BASOPHILS # (AUTO) 0.1 X10'3 (0-0.2); BASOPHILS % (AUTO) 0.7 % (0-1); EOSINOPHILS # (AUTO) 0.4 X10'3 (0-0.9); EOSINOPHILS % (AUTO) 2.3 % (0-6); HEMATOCRIT 24.4 % (42.0-52.0); LYMPHOCYTES # (AUTO) 0.8 X10'3 (1.1-4.8); LYMPHOCYTES % (AUTO) 4.6 % (21-51); MEAN CORPUSCULAR HEMOGLOBIN 28.4 PG (27.0-31.0); MEAN CORPUSCULAR HGB CONC 32.8 g/dL (33.0-36.5); MEAN CORPUSCULAR VOLUME 86.6 FL (78-98); MEAN PLATELET VOLUME 6.4 FL (7.4-10.4); MONOCYTES # (AUTO) 1.3 X10'3 (0-0.9); MONOCYTES % (AUTO) 7.4 % (2-12); NEUTROPHILS # (AUTO) 14.8 X10'3 (1.8-7.7); PLATELET COUNT 383 X10'3 (140-440); RED BLOOD COUNT 2.81 X10'6 (4.70-6.10); RED CELL DISTRIBUTION WIDTH 15.7 % (11.5-14.5); WHITE BLOOD COUNT 17.4 X10'3 (4.5-11.0)
[2019-04-25 09:51] LABS: ALANINE AMINOTRANSFERASE 21 U/L (12-78); ALBUMIN 1.5 G/DL (3.4-5.0); ALBUMIN/GLOBULIN RATIO 0.3 (1.1-1.5); ALKALINE PHOSPHATASE 108 IU/L (46-116); ANION GAP 6 (8-16); ASPARTATE AMINO TRANSFERASE 23 U/L (10-37); BILIRUBIN,TOTAL 0.2 MG/DL (0.1-1.0); BLOOD UREA NITROGEN 3 MG/DL (7-18); BUN/CREATININE RATIO 4.3 (5.4-32.0); CALCIUM 8.2 MG/DL (8.5-10.1); CHLORIDE 104 MMOL/L (99-107); GLUCOSE 103 MG/DL (70-104); POTASSIUM 3.4 MMOL/L (3.5-5.1); SODIUM 137 MMOL/L (135-145); TOTAL CARBON DIOXIDE 26.6 MMOL/L (24-32); TOTAL PROTEIN 6.4 G/DL (6.4-8.2); eGFR > 90 ML/MIN
[2019-04-25 10:00] VITALS: BP 108/58
[2019-04-25] MEDS: ipratropium/albuterol 3ml nebule NEB PRN (10:08)
[2019-04-25] MEDS: levoFLOXACIN 500mg tablet PO SCH (10:17)
[2019-04-25] MEDS: potassium Cl 20 mEq SR tablet PO PRN ×2 (10:18→13:51)
[2019-04-25] MEDS ORDERED: iohexol 300mg/ml 100ml inj. ONE (11:07)
[2019-04-25] MEDS: acetaminophen 325mg tablet PO PRN (16:05)
[2019-04-25] MEDS ORDERED: potassium Cl 20 mEq SR tablet PO PRN ×2 (16:25)
[2019-04-25] MEDS ORDERED: magnesium 4gm in 100ml NS 100 ML IV PRN (16:25)
[2019-04-25] MEDS ORDERED: magnesium Cl slow-release 64mg tablet PO PRN (16:25)
[2019-04-25] MEDS ORDERED: potassium CL 10mEq/100ml bag 100 ML IV PRN (16:25)
[2019-04-25 18:00] VITALS: BP 97/54
--- NOTE | 2019-04-25 18:30 | NUR ---
Patient in room ORTHO 4020. I have received report from Shirlene Hernandez Rn and had the opportunity to ask questions and assume patient care. Addendum: 04/25/19 at 1857 by Alaina Coronado RN Amended: Links added.
--- NOTE | 2019-04-25 18:31 | NUR ---
Patient report given to Jessica SANFORD
--- NOTE | 2019-04-25 20:00 | NUR ---
hs meds given to pt at this time. and medicated for pain with Percocet for low back and shoulder pain and behind right eye pain and pressure.
[2019-04-25] MEDS: traZODone 50mg tablet PO SCH (20:25)
--- NOTE | 2019-04-25 22:00 | NUR ---
resting eyes closed sitting up propped with 6 pillows for comfort.
[2019-04-25 22:05] VITALS: BP 106/58
--- NOTE | 2019-04-26 00:20 | NUR ---
awoke for medication and to void.
[2019-04-26] MEDS: cefepime 1GM in D5W 50mL 50 ML IV SCH ×3 (00:32→16:00)
[2019-04-26] MEDS: midodrine tablet 2.5 MG TABLET PO SCH ×4 (00:32→23:36)
[2019-04-26] MEDS: benzocaine/menthol oral lozeng 1 EACH BOX MM PRN (00:43)
--- NOTE | 2019-04-26 00:47 | NUR ---
began coughing up nascimento brownish secretions and uncomfortable with this Cepacol lozenge given to help
--- NOTE | 2019-04-26 02:00 | NUR ---
resting eyes closed without changes.
--- NOTE | 2019-04-26 04:00 | NUR ---
resting eyes closed without s&s of distress or changes.
[2019-04-26] MEDS: normal saline 1000ml 1,000 ML IV SCH ×2 (05:29→23:25)
[2019-04-26] MEDS: oxyCODONE/APAP 10/325mg tablet PO PRN ×3 (05:39→19:33)
--- NOTE | 2019-04-26 05:42 | NUR ---
pt medicated for pain with Percocet and iv tubing changed with hanging new bag of fluids and pump cleared.
[2019-04-26 06:00] VITALS: BP 127/81
--- NOTE | 2019-04-26 06:17 | NUR ---
Problems reprioritized. Patient report given, questions answered & plan of care reviewed with Margo Shukla. Addendum: 04/26/19 at 0620 by Alaina Coronado RN Amended: Links added.
[2019-04-26 06:20] LABS: ALANINE AMINOTRANSFERASE 21 U/L (12-78); ALBUMIN 1.7 G/DL (3.4-5.0); ALBUMIN/GLOBULIN RATIO 0.3 (1.1-1.5); ALKALINE PHOSPHATASE 116 IU/L (46-116); ANION GAP 8 (8-16); ASPARTATE AMINO TRANSFERASE 23 U/L (10-37); BILIRUBIN,TOTAL 0.2 MG/DL (0.1-1.0); BLOOD UREA NITROGEN 6 MG/DL (7-18); BUN/CREATININE RATIO 9.1 (5.4-32.0); CALCIUM 9.1 MG/DL (8.5-10.1); CHLORIDE 105 MMOL/L (99-107); CREATININE 0.66 MG/DL (0.60-1.10); GLUCOSE 86 MG/DL (70-104); MAGNESIUM 1.5 MG/DL (1.5-2.4); POTASSIUM 4.1 MMOL/L (3.5-5.1); SODIUM 139 MMOL/L (135-145); TOTAL CARBON DIOXIDE 26.2 MMOL/L (24-32); TOTAL PROTEIN 6.9 G/DL (6.4-8.2); eGFR > 90 ML/MIN
[2019-04-26 07:08] LABS: BASOPHILS # (AUTO) 0.1 X10'3 (0-0.2); BASOPHILS % (AUTO) 0.5 % (0-1); EOSINOPHILS # (AUTO) 0.4 X10'3 (0-0.9); EOSINOPHILS % (AUTO) 2.8 % (0-6); HEMATOCRIT 26.2 % (42.0-52.0); HEMOGLOBIN 8.6 g/dl (14.0-17.9); LYMPHOCYTES # (AUTO) 0.9 X10'3 (1.1-4.8); LYMPHOCYTES % (AUTO) 5.9 % (21-51); MEAN CORPUSCULAR HEMOGLOBIN 28.8 PG (27.0-31.0); MEAN CORPUSCULAR HGB CONC 32.8 g/dL (33.0-36.5); MEAN CORPUSCULAR VOLUME 87.6 FL (78-98); MEAN PLATELET VOLUME 6.8 FL (7.4-10.4); MONOCYTES # (AUTO) 1.2 X10'3 (0-0.9); MONOCYTES % (AUTO) 7.2 % (2-12); NEUTROPHILS # (AUTO) 13.5 X10'3 (1.8-7.7); NEUTROPHILS % (AUTO) 83.6 % (42-75); PLATELET COUNT 442 X10'3 (140-440); RED BLOOD COUNT 2.99 X10'6 (4.70-6.10); RED CELL DISTRIBUTION WIDTH 16.1 % (11.5-14.5); WHITE BLOOD COUNT 16.1 X10'3 (4.5-11.0)
[2019-04-26] MEDS: K and/or MAG REPLACEMENT MC SCH (07:50)
[2019-04-26] MEDS: lactobacillus rhamnosus 10,000 MMU CELLS/CAPSULE PO SCH ×2 (07:52→19:33)
[2019-04-26] MEDS: multivitamins, therapeutics tablet PO SCH (07:52)
[2019-04-26] MEDS: citalopram 20mg tablet PO SCH (07:52)
[2019-04-26] MEDS: heparin, porcine 5000 units/ml vial SQ SCH ×2 (07:53→08:31)
[2019-04-26] MEDS: LIDOcaine 5% patch TP SCH (07:53)
[2019-04-26] MEDS: lactose-reduced food (Ensure Enlive) - 237ml bottle PO SCH ×3 (08:00→19:37)
[2019-04-26 10:00] VITALS: BP 106/54
[2019-04-26] MEDS: levoFLOXACIN 500mg tablet PO SCH (13:09)
[2019-04-26] MEDS ORDERED: ketorolac tromethamine 15mg/ml inj. IV ONE (16:40)
--- NOTE | 2019-04-26 18:39 | NUR ---
Problems reprioritized. Patient report given, questions answered & plan of care reviewed with Ladi SANFORD.
--- NOTE | 2019-04-26 18:46 | NUR ---
Patient refused to have an IV placed at this time.
[2019-04-26 19:00] VITALS: BP 120/68
[2019-04-26] MEDS: traZODone 50mg tablet PO SCH (19:34)
--- NOTE | 2019-04-26 19:51 | NUR ---
Pt continues to refuse IV at this time, will attempt later. Pt understands that he will not be able to get his IV pain medication or IV fluids to help his BP, or receive his antibiotics. Will continue to educate pt. Addendum: 04/26/19 at 2014 by Ladi Chong RN Amended: Links added.
--- NOTE | 2019-04-26 20:15 | NUR ---
Nurse in to discuss pts blood pressure, He is aware now that it is low and that we still do not have IV access to help with his blood volume. Pt states he understands, however still does not want an IV stating " I don't want to deal with all that right now". Addendum: 04/26/19 at 2234 by Ladi Chong RN Amended: Links added.
[2019-04-26 22:00] VITALS: BP 93/46
[2019-04-27 06:00] VITALS: BP 111/61
--- NOTE | 2019-04-27 06:15 | NUR ---
Problems reprioritized. Patient report given, questions answered & plan of care reviewed with Margo SANFORD. Addendum: 04/27/19 at 0616 by Ladi Chong RN Amended: Links added.
[2019-04-27 06:53] LABS: BASOPHILS # (AUTO) 0.1 X10'3 (0-0.2); BASOPHILS % (AUTO) 0.4 % (0-1); EOSINOPHILS # (AUTO) 0.4 X10'3 (0-0.9); EOSINOPHILS % (AUTO) 2.2 % (0-6); HEMATOCRIT 25.1 % (42.0-52.0); HEMOGLOBIN 8.3 g/dl (14.0-17.9); LYMPHOCYTES # (AUTO) 0.9 X10'3 (1.1-4.8); LYMPHOCYTES % (AUTO) 4.4 % (21-51); MEAN CORPUSCULAR HEMOGLOBIN 28.9 PG (27.0-31.0); MEAN CORPUSCULAR HGB CONC 33.1 g/dL (33.0-36.5); MEAN CORPUSCULAR VOLUME 87.5 FL (78-98); MEAN PLATELET VOLUME 6.1 FL (7.4-10.4); MONOCYTES # (AUTO) 1.2 X10'3 (0-0.9); MONOCYTES % (AUTO) 6.1 % (2-12); NEUTROPHILS # (AUTO) 17.1 X10'3 (1.8-7.7); NEUTROPHILS % (AUTO) 86.9 % (42-75); PLATELET COUNT 412 X10'3 (140-440); RED BLOOD COUNT 2.87 X10'6 (4.70-6.10); WHITE BLOOD COUNT 19.7 X10'3 (4.5-11.0)
[2019-04-27 07:06] LABS: ALANINE AMINOTRANSFERASE 18 U/L (12-78); ALBUMIN 1.6 G/DL (3.4-5.0); ALBUMIN/GLOBULIN RATIO 0.3 (1.1-1.5); ALKALINE PHOSPHATASE 116 IU/L (46-116); ANION GAP 8 (8-16); ASPARTATE AMINO TRANSFERASE 16 U/L (10-37); BILIRUBIN,TOTAL 0.3 MG/DL (0.1-1.0); BLOOD UREA NITROGEN 5 MG/DL (7-18); BUN/CREATININE RATIO 6.8 (5.4-32.0); CALCIUM 9.9 MG/DL (8.5-10.1); CHLORIDE 102 MMOL/L (99-107); CREATININE 0.73 MG/DL (0.60-1.10); GLUCOSE 111 MG/DL (70-104); MAGNESIUM 1.6 MG/DL (1.5-2.4); SODIUM 136 MMOL/L (135-145); TOTAL CARBON DIOXIDE 26.1 MMOL/L (24-32); TOTAL PROTEIN 6.8 G/DL (6.4-8.2); eGFR > 90 ML/MIN
[2019-04-27] MEDS: K and/or MAG REPLACEMENT MC SCH (08:00)
[2019-04-27] MEDS: lactose-reduced food (Ensure Enlive) - 237ml bottle PO SCH ×3 (08:00→18:00)
[2019-04-27] MEDS: cefepime 1GM in D5W 50mL 50 ML IV SCH ×2 (08:00)
[2019-04-27] MEDS: heparin, porcine 5000 units/ml vial SQ SCH ×2 (08:00→20:28)
[2019-04-27] MEDS: citalopram 20mg tablet PO SCH (09:35)
[2019-04-27] MEDS: midodrine tablet 2.5 MG TABLET PO SCH ×2 (09:35→16:28)
[2019-04-27] MEDS: LIDOcaine 5% patch TP SCH (09:35)
[2019-04-27] MEDS: lactobacillus rhamnosus 10,000 MMU CELLS/CAPSULE PO SCH ×2 (09:36→20:27)
[2019-04-27] MEDS: levoFLOXACIN 500mg tablet PO SCH (09:36)
[2019-04-27] MEDS: multivitamins, therapeutics tablet PO SCH (09:37)
[2019-04-27] MEDS: oxyCODONE/APAP 10/325mg tablet PO PRN (09:41)
[2019-04-27 10:00] VITALS: BP 109/59
--- NOTE | 2019-04-27 11:55 | NUR ---
reassessment: Pt PO 25-50% avg meals does fluctuate and receiving ensure puddings BIDLD w/ 100% ONS likely meeting needs. LBM 04/24. [place] d/w RN regarding d/c old NPO diet per MD approval. Will continue to monitor. Rec: 1. advance to regular diet per MD 2. vanilla ensure pudding,milk TID; cottage cheese and fruit w/ breakfasts 3. routine bowel care 4. MVI for additional needs w/ CA DX 5. vanilla ensure enlive TIDWM 6. weekly wts Addendum: 04/27/19 at [address] Amended: Links added.
[2019-04-27] MEDS ORDERED: ketorolac trometh. 30mg/ml inj. IM ONE (16:05)
--- NOTE | 2019-04-27 18:29 | NUR ---
Problems reprioritized. Patient report given, questions answered & plan of care reviewed with Stephen SANFORD
[2019-04-27 18:40] VITALS: BP 124/67
[2019-04-27] MEDS: traZODone 50mg tablet PO SCH (20:27)
[2019-04-27 23:00] VITALS: BP 135/81
[2019-04-28] MEDS: midodrine tablet 2.5 MG TABLET PO SCH ×3 (00:39→16:22)
[2019-04-28 06:00] VITALS: BP 136/77
[2019-04-28 06:16] LABS: BASOPHILS # (AUTO) 0.1 X10'3 (0-0.2); BASOPHILS % (AUTO) 0.8 % (0-1); EOSINOPHILS # (AUTO) 0.4 X10'3 (0-0.9); HEMATOCRIT 26.6 % (42.0-52.0); HEMOGLOBIN 8.7 g/dl (14.0-17.9); LYMPHOCYTES # (AUTO) 0.9 X10'3 (1.1-4.8); LYMPHOCYTES % (AUTO) 4.8 % (21-51); MEAN CORPUSCULAR HEMOGLOBIN 28.6 PG (27.0-31.0); MEAN CORPUSCULAR HGB CONC 32.6 g/dL (33.0-36.5); MEAN CORPUSCULAR VOLUME 87.7 FL (78-98); MEAN PLATELET VOLUME 6.4 FL (7.4-10.4); MONOCYTES # (AUTO) 1.1 X10'3 (0-0.9); MONOCYTES % (AUTO) 6.2 % (2-12); NEUTROPHILS # (AUTO) 15.3 X10'3 (1.8-7.7); NEUTROPHILS % (AUTO) 86.2 % (42-75); PLATELET COUNT 470 X10'3 (140-440); RED BLOOD COUNT 3.03 X10'6 (4.70-6.10); WHITE BLOOD COUNT 17.7 X10'3 (4.5-11.0)
--- NOTE | 2019-04-28 06:24 | NUR ---
Patient in room ORTHO 4018. I have received report from Stephen SANFORD and had the opportunity to ask questions and assume patient care. Addendum: 04/28/19 at 0625 by Alie Cornejo RN Amended: Links added.
--- NOTE | 2019-04-28 06:33 | NUR ---
Problems reprioritized. Patient report given, questions answered & plan of care reviewed with RACHELLE. Addendum: 04/28/19 at 0633 by Jimenez Prater RN Amended: Links added.
[2019-04-28 06:41] LABS: ALANINE AMINOTRANSFERASE 19 U/L (12-78); ALBUMIN 1.8 G/DL (3.4-5.0); ALBUMIN/GLOBULIN RATIO 0.3 (1.1-1.5); ALKALINE PHOSPHATASE 113 IU/L (46-116); ANION GAP 6 (8-16); ASPARTATE AMINO TRANSFERASE 24 U/L (10-37); BILIRUBIN,TOTAL 0.3 MG/DL (0.1-1.0); BLOOD UREA NITROGEN 8 MG/DL (7-18); BUN/CREATININE RATIO 11.4 (5.4-32.0); CALCIUM 10.9 MG/DL (8.5-10.1); CHLORIDE 102 MMOL/L (99-107); GLUCOSE 92 MG/DL (70-104); MAGNESIUM 1.8 MG/DL (1.5-2.4); POTASSIUM 3.8 MMOL/L (3.5-5.1); SODIUM 136 MMOL/L (135-145); TOTAL CARBON DIOXIDE 28.2 MMOL/L (24-32); eGFR > 90 ML/MIN
[2019-04-28] MEDS: citalopram 20mg tablet PO SCH (07:34)
[2019-04-28] MEDS: multivitamins, therapeutics tablet PO SCH (07:34)
[2019-04-28] MEDS: lactobacillus rhamnosus 10,000 MMU CELLS/CAPSULE PO SCH (07:34)
[2019-04-28] MEDS: LIDOcaine 5% patch TP SCH (07:36)
[2019-04-28] MEDS: heparin, porcine 5000 units/ml vial SQ SCH (07:36)
[2019-04-28] MEDS: K and/or MAG REPLACEMENT MC SCH (07:39)
[2019-04-28] MEDS: lactose-reduced food (Ensure Enlive) - 237ml bottle PO SCH ×2 (08:31→13:48)
[2019-04-28 10:00] VITALS: BP 94/46
[2019-04-28] MEDS: oxyCODONE/APAP 10/325mg tablet PO PRN (14:16)
--- NOTE | 2019-04-28 15:14 | NUR ---
O2 Sat at rest on room air:_90__% If below 89%: Recovery O2 Sat at rest on _0__LPM:__92_%:__% via (mask/nasal cannula, etc..) No further documentation is necessary. If O2 Sat did not drop below 89% on room air,ambulate patient on room air. O2 Sat while ambulating on room air:__87_% Recovery O2 Sat while ambulating on ___LPM:___% No further documentation is necessary. If patient does not drop below 89% while ambulating, he/she does not qualify for home O2. Addendum: 04/28/19 at 1527 by Alie Cornejo RN Disregard above note. See new note.
[2019-04-28] MEDS ORDERED: MIDO2.5T14 PO (15:16)
[2019-04-28] MEDS ORDERED: LIDO700A47 TP (15:16)
[2019-04-28] MEDS ORDERED: IPRA3AMP9 NEB (15:16)
[2019-04-28] MEDS ORDERED: PER10325T PO (15:16)
--- NOTE | 2019-04-28 15:16 | NUR ---
Dr. Krueger trying to discharge pt. if meds can be delivered at bedside, 02 can be provided and sr. social media & mobile manager can provide a list of resources for pt.
--- NOTE | 2019-04-28 15:27 | NUR ---
O2 Sat at rest on room air:__90_% If below 89%: Recovery O2 Sat at rest on ___LPM:___%:___% via (mask/nasal cannula, etc..) No further documentation is necessary. If O2 Sat did not drop below 89% on room air,ambulate patient on room air. O2 Sat while ambulating on room air:_87__% Recovery O2 Sat while ambulating on _2__LPM:_92__% No further documentation is necessary. If patient does not drop below 89% while ambulating, he/she does not qualify for home O2.
--- NOTE | 2019-04-28 17:05 | NUR ---
DC meds, O2, housing resources and a disc with images provided to pt. prior to dc. Pt. has appt. with oncologist tomorrow afternoon and was discharged today at the request of family.
--- NOTE | 2019-04-28 17:16 | NUR ---
Pt. and his family (daughter and g.daughter) stated pt's shoes, a pair of brown, slip-on [employer] obtained mold while here at the hospital and would like to be compensated for the shoes. Disability Aide was not available during this complaint but charge nurse Roxane was made aware of the family's claim. RN provided pt's dtr. with a contact number for director as to further discuss the shoe situation. Pt. was adamant that shoes were in good condition prior to his hospitalization. RN checked the admission belongings list which did included a pair of shoes however the brand was not named. RN did see the pair of Scotty's in pt's room this shift.
== END 2019-04-28 17:00 | disposition home or self-care (01) | DRG 871 ==
LOC: ER 23:24 → ORTHO 4S 04-16 02:30 → CMPBEDREQ 04-16 02:34 → ORTHO 4S 04-16 03:33
PROVIDERS: ADMIT Internal Medicine; ATTEND Family Medicine
PROC: 0BD38ZX Extraction of Right Main Bronchus, Via Natural or Artificial Opening Endoscopic, Diagnostic (ICD-10-PCS; principal; 2019-04-18)
PROC: BW211ZZ Computerized Tomography (CT Scan) of Abdomen and Pelvis using Low Osmolar Contrast (ICD-10-PCS; 2019-04-24)
DX: A41.9 Sepsis, unspecified organism (principal); J96.01 Acute respiratory failure with hypoxia; G93.41 Metabolic encephalopathy; J18.1 Lobar pneumonia, unspecified organism; C34.01 Malignant neoplasm of right main bronchus; J90 Pleural effusion, not elsewhere classified; J44.0 Chronic obstructive pulmonary disease with (acute) lower respiratory infection; I95.0 Idiopathic hypotension; I10 Essential (primary) hypertension; D64.9 Anemia, unspecified; E83.52 Hypercalcemia; F32.9 Major depressive disorder, single episode, unspecified; Z88.0 Allergy status to penicillin; Z88.5 Allergy status to narcotic agent; Z79.899 Other long term (current) drug therapy
CPT/HCPCS: 31622; 31625; 31628; 36415; 36600; 70470; 71045; 71250; 72040; 72070; 72100; 74177; 76937; 80048; 80053; 82330; 82803; 83605; 83735; 84145; 85018; 85025; 87040; 87070; 87081; 88173; 88305; 88341; 88342; 92508; 92616; 93005; 94640; 94667; 94668; 94760; 96365; 96367; 97110; 97116; 97161; 97530; 99285; G0378; J0171; J0456; J0692; J0696; J1644; J1885; J1956; J2250; J2430; J3010; J3480; J7030; J7040; J7050; Q9963; Q9967